=== PATIENT | female | born 1955 | race Caucasian/White ===

== ENCOUNTER → 2020-02-29 15:39 | Outpatient (POV) | payer MEDICARE, SELFPAY ==
[2020-02-29 15:48] VITALS: BMI 38.6
--- NOTE | 2020-03-01 07:53 | [facility].PMCON ---
Assessment and Plan (1) Degenerative joint disease (DJD) of lumbar spine Current visit: Yes Status: Chronic Category: Medical Code(s): M47.816 - Spondylosis without myelopathy or radiculopathy, lumbar region (2) Postlaminectomy syndrome Current visit: Yes Status: Chronic Category: Medical Code(s): M96.1 - Postlaminectomy syndrome, not elsewhere classified - Assessment and plan all Dx Assessment and Plan for all problems:: We will refill her Nash 7.5 mg 1 p.o. twice daily and give her 1 month worth of medication. We will see her back in our [facility] for her next intrathecal pain pump refill and reprogram. She has been instructed to call the office if she has any issues prior to her next appointment. This encounter was performed as a telemedicine visit via secure 2 way video and audio to minimize risk and transmission of Covid-19. The patient and we understand the limitations of a telemedicine visit including inability to check reflexes, possibly missing subtle findings on physical exam. Alternative options were presented to the patient and the patient elected to proceed with the visit. We specifically discussed risk factors for Covid-19 including age, heart or lung disease, diabetes, immunosuppression and travel. We also discussed that NSAIDs may worsen Covid-19 infection symptoms and that they should not be used to treat Covid-19 symptoms. Patient was also informed that corticosteroids in any form oral or injectable will decrease immune response and may increase risk of Covid-[address] Crandall has reviewed this patient's chart and this note and agrees with plan of care. Patient has been instructed to call the office if they have any issues prior to the next appointment. Patient has been prescribed a controlled substance after being counseled on the medication, medication safety, and possible side effects. SUYAPA report has been obtained and reviewed prior to prescription and found to be appropriate. Opioid contract was reviewed and signed by the patient, and that they have agreed to all of the terms set forth by our compliance program. HPI - Data of Consult Consult date: 02/29/20 Requesting Physician: Makenzie Pham APRN Primary Care Provider: Referral Provider, MD - Consult Narrative Reason for consult: Medication refills History of present illness: Ms. Reece is a 65 year old female who presents today for a telehealth visit in regards to her Nash 7.5 mg 1 p.o. twice daily refill. Suyapa #[id number] reviewed and appropriate. She does have an intrathecal pain pump. Patient rates her pain today a 5 out of 10. She is continuing to drive a truck. She is currently on Dilaudid 0.18 mg a day intrathecally. Her morphine equivalent is 15. She denies side effects from medication. She is an established patient in our [facility]. CC: Makenzie Pham APRN [facility] History I have reviewed the patient's past medical history: Yes Medical History: Denies:: Cancer, Diabetes Mellitus Type 1, Diabetes Mellitus Type 2, MRSA *Have you ever received a pneumonia vaccine?: Yes *Have you received a flu vaccine this season?: Yes Other Medical History: Reports: Thyroid Disease Amputation: No Fractures: No - *Social History Smoking Status: Never smoker Alcohol Intake: never *Occupational Status:: other Housing: house Household Members: other *Travel in the last 8 weeks: None Family Hx:: Unable to obtain Review of Systems - Review of Systems ROS General: no recent weight change, no fever, no sleep disturbances Respiratory: no cough, no shortness of air, no recurring pulmonary infections Cardiovascular/Peripheral Vascular: No chest pain, No palpitations, no edema, no shortness of breath. Gastrointestinal: no new onset incontinence, normal bowel movements reported Genitourinary: no new onset incontinence Musculoskeletal: Back pain Psychiatric: normal mood/ affect Neurological: [
== END ==
PROVIDERS: Visit Provider Clinical Nurse Specialist Family Health
DX: M47.816 Spondylosis without myelopathy or radiculopathy, lumbar region (principal); M96.1 Postlaminectomy syndrome, not elsewhere classified; Z76.0 Encounter for issue of repeat prescription
CPT/HCPCS: 99202